=== PATIENT | male | born 1950 | race Caucasian/White ===

== ENCOUNTER 2016-08-17 08:29 | Day surgery (SDC) | payer MEDICARE, OTHER ==
[~2016-08-17] VITALS: Ht 177.8 cm; Wt 90.7 kg
[~2016-08-17 08:29] MED LIST: CHOL-4 PO; MULT-666 PO; OMEG1CAP56 PO; Sodium Chloride LOK Flush 10 mL Syringe IV PRN; VIT1CAPS46 PO; fentaNYL-PF 50 mCg/mL 2 mL Inj IVPUSH PRN
[2016-08-17 09:14] VITALS: BP 161/85; PULSE 51; RESP 15; O2SAT 95
[2016-08-17] MEDS ORDERED: 0.9% Sodium Chloride 1,000 ML IV ONE (09:26)
[2016-08-17 10:08] VITALS: BP 118/77; PULSE 55; RESP 16; O2SAT 93
[2016-08-17 10:18] VITALS: BP 111/69; PULSE 46; RESP 16; O2SAT 93
[2016-08-17 10:28] VITALS: BP 105/69; PULSE 45; RESP 16; O2SAT 96
--- NOTE | 2016-08-17 10:53 | ENDO ---
[address] [address] ENDOSCOPY PROCEDURE PATIENT: JIA MARCUS : 1950 MR#: [id number] ADMIT: 08/17/2016 JOB ID: [id number] DATE OF SERVICE: 08/17/2016 TYPE OF OPERATION: 1. Esophagogastroduodenoscopy with biopsy. 2. Colonoscopy with biopsy. PREOPERATIVE DIAGNOSIS(ES): 1. Gastroesophageal reflux disease. 2. Positive fecal immunochemical test. POSTOPERATIVE DIAGNOSIS(ES): 1. Gastric nodule, 2 mm, was seen. 2. Distal esophageal ulcer, clean based, nonbleeding, two of them (largest size 4 mm in diameter), status post biopsy. 3. Mild distal esophagitis. 4. Irregular Z-line. 5. Small internal hemorrhoids. ANESTHESIA: Fentanyl 125 mcg and Versed 7 mg IV administered. COMPLICATIONS: None. BLOOD LOSS: Minimal. DESCRIPTION OF PROCEDURE: After risks and benefits were explained to the patient, informed consent was obtained. After anesthesia administered, an upper endoscope was then inserted in the mouth and intubated into the esophagus, stomach, second portion of duodenum. Mucosa carefully examined. After procedure was done, the scope withdrawn and procedure terminated. A colonoscope was then inserted from the rectum to the cecum. Mucosa carefully examined. Prep of the patient was excellent. After the procedure was done, the scope withdrawn and procedure was terminated. FINDINGS: Upon inspection of the esophagus, there was an irregular Z-line located in the distal esophagus with two ulcers, clean based, nonbleeding, largest size 4 mm, status post biopsy. There is mild distal esophagitis. Upon entering the stomach, there was a gastric nodule that was seen, 2 mm, nonbleeding, that was biopsied. No other masses, ulcers, or lesions were noticed. Retroflexion was normal. Duodenal bulb, first and second portions normal. Biopsies taken of the antrum and body of the stomach, gastric nodule and distal esophagus. Upon inspection of the anus, no masses, hemorrhoids, ulcers, or fissures that were seen. Throughout the entire examination, there were no polyps, masses, or lesions. Retroflexion showed small internal hemorrhoids. IMPRESSION: 1. Small internal hemorrhoids. 2. Gastric nodule, 2 mm, status post biopsy. 3. Mild distal esophagitis. 4. Irregular Z-line. 5. Distal esophageal ulcer, 4 mm, clean based, nonbleeding, status post biopsy. RECOMMENDATION: 1. Await pathology results. 2. Carafate 1 g by mouth 4 times a day. 3. Protonix 40 mg by mouth twice a day. 4. Follow up in GI clinic with Dr. Terry Calvillo as an outpatient. 5. Repeat colonoscopy in 10 years.
--- NOTE | 2016-08-20 13:56 | PATH ---
SURGICAL PATHOLOGY Attending Physician:Miki Boswell MD CASE STATUS: Signed Out PATIENT NAME: JIA MARCUS PID: [id number] : 1950 DATE COLLECTED:08/17/2016 17:51 SPECIMEN: 1: Gastric, Biopsy 2: Stomach, Antrum, Biopsy 3: Gastric, Biopsy 4: Esophagus, Biopsy 5: Esophagus, Biopsy CLINICAL HISTORY: 1). GASTRIC NODULE BIOPSY 2). ANTRUM BIOPSY 3). BODY BIOPSY 4). DISTAL ESOPHAGUS BIOPSY 5). ESOPHAGUS ULCER BIOPSY FINAL DIAGNOSIS: 1.GASTRIC NODULE BIOPSY: CHANGES CONSISTENT WITH HYPERPLASTIC POLYP INVOLVING OXYNTIC MUCOSA. Negative for atypia and malignancy. Negative for evidence of Helicobacter. Negative for intestinal metaplasia. 2.GASTRIC ANTRUM BIOPSY: FRAGMENTS OF NORMAL-APPEARING ANTRAL MUCOSA. Negative for significant inflammation. Negative for evidence of Helicobacter. Negative for intestinal metaplasia. Negative for dysplasia and malignancy. 3.GASTRIC BODY BIOPSY: MILD CHRONIC GASTRITIS INVOLVING FUNDIC MUCOSA. Negative for evidence of Helicobacter. Negative for intestinal metaplasia. Negative for dysplasia and malignancy. 4.DISTAL ESOPHAGUS BIOPSY: SQUAMOUS MUCOSA AND GASTRIC CARDIA-TYPE MUCOSA POSITIVE FOR SPECIALIZED METAPLASIA OF HAINES' S-TYPE ESOPHAGUS. Negative for dysplasia and malignancy. Negative for squamous intraepithelial eosinophils. 5.ESOPHAGUS ULCER BIOPSY: SQUAMOUS MUCOSA WITH ACUTE AND CHRONIC INFLAMMATION AND MARKED REACTIVE SQUAMOUS EPITHELIAL CHANGES WITH ALTERATIONS CONSISTENT WITH SUPERFICIAL MUCOSAL EROSION. NO GASTRIC EPITHELIUM IDENTIFIED. Negative for intraepithelial eosinophils. Negative for dysplasia and malignancy. ICD10 code K22.70 GROSS DESCRIPTION: Received are five formalin-filled containers, each labeled with the patient' s name. 1. Received in formalin, labeled with the patient' s name and "gastric nodule BX", is one fragment of edwards, soft tissue measuring 0.2 x 0.2 x 0.1 cm. The fragment is totally submitted in cassette 1A. 2. Received in formalin, labeled with the patient' s name and "antrum BX", are two fragments of edwards, soft tissue ranging in size from 0.1 x 0.1 x 0.1 cm to 0.3 x 0.2 x 0.2 cm. All fragments are totally submitted in cassette 2A. 3. Received in formalin, labeled with the patient' s name and "body BX", are two fragments of edwards, soft tissue ranging in size from 0.1 x 0.1 x 0.1 cm to 0.2 x 0.1 x 0.1 cm. All fragments are totally submitted in cassette 3A. 4. Received in formalin, labeled with the patient' s name and "distal esophagus", are two fragments of edwards, soft tissue ranging in size from 0.1 x 0.1 x 0.1 cm to 0.2 x 0.1 x 0.1 cm. All fragments are totally submitted in cassette 4A. 5. Received in formalin, labeled with the patient' s name and "esophagus ulcer BX", is one fragment of edwards, soft tissue measuring 0.1 x 0.1 x 0.1 cm. The fragment is totally submitted in cassette 5A. ([id number]) MICRO DESCRIPTION: See diagnosis. ICD-9 CODES: CPT CODES: 1: 30408 2: 67547 3: 83739 4: 70521 5: 88768 Electronically Signed Out Nash Radford MD [facility] Pathology [facility] [address], [place] [address] Technical component performed at [facility], [facility] [address], [place], [address]
== END 2016-08-17 23:59 | disposition home or self-care (01) ==
LOC: END 08:29
PROVIDERS: ATTEND Internal Medicine Gastroenterology
DX: R19.5 Other fecal abnormalities (principal); K64.8 Other hemorrhoids; K29.50 Unspecified chronic gastritis without bleeding; K31.7 Polyp of stomach and duodenum; K21.9 Gastro-esophageal reflux disease without esophagitis; K22.70 Barrett's esophagus without dysplasia; K20.8 Other esophagitis; F17.290 Nicotine dependence, other tobacco product, uncomplicated; Z90.79 Acquired absence of other genital organ(s); Z85.46 Personal history of malignant neoplasm of prostate
CPT/HCPCS: 43239; 45378; 88305; 99153; G0500; J7030